=== PATIENT | male | born 1970 | race Caucasian/White ===

== ENCOUNTER → 2023-04-17 11:28 | Outpatient (BNVA) | payer MEDICAID, SELFPAY | PROVIDERS: Visit Provider Nurse Practitioner | DX: Z12.5 Encounter for screening for malignant neoplasm of prostate (principal); I10 Essential (primary) hypertension | CPT/HCPCS: 80053; 80061; 84443; 85025; G0103 ==

== ENCOUNTER 2023-08-18 17:09 | Outpatient (CLI) | payer MEDICAID, SELFPAY ==
--- NOTE | 2023-08-18 17:35 | XRR_ITS ---
PROCEDURE INFORMATION: Exam: XR Lumbosacral Spine Exam date and time: 08/18/2023 5:37 PM Age: 52 years old Clinical indication: Condition or disease; Spondylolisthesis; Lumbar region; Additional info: Spondylolisthesis lumbar region TECHNIQUE: Imaging protocol: Radiologic exam of the lumbosacral spine. Views: 2 or 3 views. Total images: 3 COMPARISON: MR lumbar spine wo con* [id number] 12/18/2016 2:45 PM FINDINGS: Bones/joints: Multilevel degenerative disc disease with disc space narrowing and osteophyte formation. Vertebral body heights are maintained. No evidence of spondylolysis nor spondylolisthesis. No evidence of dynamic instability with flexion and extension maneuvers. Soft tissues: Unremarkable. XR/XR lumbar spine f/e only [id number] IMPRESSION: 1. Degenerative changes as described above but no acute pathology detected. 2. No evidence of dynamic instability with flexion and extension maneuvers.
== END 2023-08-18 17:10 | disposition home or self-care (01) ==
PROVIDERS: PCP Nurse Practitioner; Visit Provider Nurse Practitioner
DX: M43.16 Spondylolisthesis, lumbar region (principal)
CPT/HCPCS: 72120

== ENCOUNTER 2023-11-13 11:11 | Outpatient (CLI) | payer MEDICAID, SELFPAY ==
--- NOTE | 2023-11-13 11:15 | MR_ITS ---
WS: [id number] MRI LUMBAR SPINE NONCONTRAST TECHNIQUE: Sagittal T1, T2 and STIR imaging. Axial T1 and T2 imaging. CLINICAL INFORMATION: VERTEBROGENIC LOW BACK PAIN COMPARISON: MRI 2017 FINDINGS: Mild lumbar curve. No acute compression. No high-grade central canal stenosis. L1-L2: Mild annular bulging with slight effacement of the ventral thecal sac. Mild narrowing of the s ubarticular recess bilaterally. Mild facet arthropathy. Foramen are patent. L2-L3: Mild annular bulging with slight narrowing of the RIGHT greater than LEFT subarticular recess. Mild facet arthropathy. Spinal canal and foramen are patent. L3-L4: Mild annular bulging with a tiny LEFT proximal foraminal protrusion. Slight contact of the pro ximal exiting LEFT L3 nerve root. RIGHT foramen and spinal canal are patent. Mild facet arthropathy. L4-L5: Mild annular bulging. Slight effacement of the ventral thecal sac. Mild facet arthropathy. Mil d LEFT and no significant RIGHT foraminal narrowing. L5-S1: Mild annular bulging with a shallow LEFT paracentral protrusion. This impinges the traversing LEFT S1 nerve root in the subarticular recess. This is similar to previous. Recommend correlation LEF T S1 nerve root symptoms. Mild LEFT greater than RIGHT foraminal narrowing. Mild facet arthropathy. Visualized pelvic bony structures: Normal. Paravertebral soft tissues: Normal. IMPRESSION: 1. Tiny LEFT proximal foraminal disc osteophyte protrusion L3-4 slightly contacts the exiting LEFT L 3 nerve root. This is progressed compared to previous. 2. Mild LEFT L4-5 foraminal narrowing. 3. Shallow LEFT paracentral protrusion L5-S1 slightly impinges the traversing LEFT S1 nerve root in the subarticular recess similar to previous. 4. Mild facet arthropathy L3-L5.
== END 2023-11-13 11:12 | disposition home or self-care (01) ==
LOC: RAD 11:11
PROVIDERS: PCP Nurse Practitioner; Visit Provider Anesthesiology Pain Medicine
DX: M51.27 Other intervertebral disc displacement, lumbosacral region (principal); M48.061 Spinal stenosis, lumbar region without neurogenic claudication; M25.78 Osteophyte, vertebrae; M47.816 Spondylosis without myelopathy or radiculopathy, lumbar region
CPT/HCPCS: 72148

== ENCOUNTER 2024-03-09 20:00 | Outpatient (CLI) | payer MEDICAID, SELFPAY | END 2024-03-09 20:01 | disposition home or self-care (01) | LOC: SLEEP 03-10 06:28 | PROVIDERS: PCP Nurse Practitioner Family; Visit Provider Specialist | DX: G47.10 Hypersomnia, unspecified (principal); G31.84 Mild cognitive impairment of uncertain or unknown etiology; G47.33 Obstructive sleep apnea (adult) (pediatric) | CPT/HCPCS: 95810 ==

== ENCOUNTER → 2024-06-01 11:57 | Outpatient (BNVA) | payer MEDICAID, SELFPAY | PROVIDERS: PCP Nurse Practitioner Family; Visit Provider Nurse Practitioner Family | DX: I10 Essential (primary) hypertension (principal) | CPT/HCPCS: 80053; 85025 ==

== ENCOUNTER → 2025-01-11 12:53 | Outpatient (BNVA) | payer MEDICAID, SELFPAY | PROVIDERS: PCP Nurse Practitioner Family; Visit Provider Specialist | DX: R41.3 Other amnesia (principal); G47.10 Hypersomnia, unspecified; M54.9 Dorsalgia, unspecified; G89.29 Other chronic pain; M51.16 Intervertebral disc disorders with radiculopathy, lumbar region; F90.2 Attention-deficit hyperactivity disorder, combined type; F41.1 Generalized anxiety disorder | CPT/HCPCS: 36415; 82542; 82607; 83520; 99213 ==

== ENCOUNTER → 2025-02-24 11:38 | Outpatient (BNVA) | payer MEDICAID, SELFPAY | PROVIDERS: PCP Nurse Practitioner Family; Visit Provider Student in an Organized Health Care Education/Training Program | DX: Z12.11 Encounter for screening for malignant neoplasm of colon (principal) | CPT/HCPCS: 99024; 99204 ==

== ENCOUNTER 2025-03-29 08:29 | Day surgery (SDC) | payer MEDICAID, SELFPAY ==
[2025-03-29 08:50] VITALS: BP 152/96; PULSE 84; RESP 18; TEMP 36.9; O2SAT 97; BMI 25.0
[2025-03-29] MEDS: sodium chloride 0.9% 1,000 ML 15 ML IV (08:58)
--- NOTE | 2025-03-29 09:13 | P.ANESASSM_ITS ---
Pre-Anesthetic Assessment Height/Weight: Height 1.73 m Weight 74.843 kg Temp Pulse Resp BP Pulse Ox O2 Del Method 98.5 F 84 18 152/96 97 Room Air 03/29/25 08:50 03/29/25 08:50 03/29/25 08:50 03/29/25 08:50 03/29/25 08:50 03/29/25 08:50 Preop Diagnosis: screening Operation Date: 03/29/25 10:30 Proposed Procedures p [id number], [id number], Z12.11(Not Applicable) - Jack Mendoza MD Familial anesthetic complications: none Was Beta Berry taken within 24 hours: N/A Was Clonidine taken within 24 hours: N/A Last intake: Intake Last Liquid Date 03/28/25 Last Liquid Time 23:00 Last Solid Date 03/27/25 Last Solid Time 19:00 Social No alcohol and No tobacco Exam alert and oriented x 3 Airway Submandibular: within normal limits Cervical ROM: within normal limits Mallampati: Class II Dentition: full Pulmonary Asthma CV/HEM Hypertension kidney stones Hepatic None reported GI Gastroesophageal Reflux Disease (occasional) Metabolic None reported Musc/skel Lower Back Pain Neuropsych Anxiety and Depression ADHD Anesthetic Plan ASA status: 3 Anesthesia: Anesthesia Evaluation and MAC Risk of > 500 ml blood loss (7ml/kg in children): No Medications/Allergies Home Medications ?Medication ?Instructions ?Recorded ?Confirmed ?Last Taken ?Type tramadol 50 mg tablet 50 mg PO Q6H PRN pain #20 ta bs 07/08/23 03/29/25 03/27/25 Rx albuterol sulfate 90 mcg/actuation 2 puff inhalation Q 6H PRN 06/01/24 03/29/25 Unknown Rx aerosol inhaler shortness of breath or wheez ing #8.5 grams cetirizine 10 mg tablet (All Day 10 mg PO DAILY #90 ta bs 06/01/24 03/29/25 03/28/25 Rx Allergy (cetirizine)) methylphenidate HCl 20 mg tablet 20 mg PO BID 1 month #60 tabs 01/11/25 03/29/25 03/23/25 Rx cyanocobalamin (vitamin B-12) 1,000 mcg IM Q30D 12 mon ths #12 mL 01/19/25 03/29/25 03/03/25 Rx 1,000 mcg/mL injection solution lisinopril 20 mg tablet 20 mg PO DAILY #90 tabs 01/0803/29/25 03/23/25 Rx fluticasone 250 mcg-salmeterol 50 1 inh inhalation BID 03/24/25 03/29/25 03/28/25 History mcg/dose blistr powdr for inhalation (Advair Diskus) Allergies Allergy/AdvReac Type Severity Reaction Status Date / Time soy Allergy ADR-Heartbu Verified 03/29/25 08:46 rn Current Medications Generic Name Dose Route Start Last Admin Trade Name Freq PRN Reason Stop Dose Admin Sodium Chloride 1,000 mls @ 15 mls/hr 03/29/25 08:44 03/29/25 08:58 Sodium Chloride 0.9% IV 03/30/25 08:43 15 mls/hr .Q24H PRN Administration COLONOSCOPY FLUIDS PFSH Anesthesia Medical History Psychiatric care Pain Social History Smoking and tobacco/nicotine status: never used tobacco/nicotine
--- NOTE | 2025-03-29 11:09 | W.PM.OPSFHP ---
Same Day Surgery H&P Indication for Procedure/HPI DATE OF PROCEDURE: March 29, 2025 CHIEF COMPLAINT/INDICATIONFOR SURGICAL PROCEDURE: screening colonoscopy PREOP DIAGNOSIS: screening PLANNED PROCEDURE: Operation Date: 03/29/25 10:30 Proposed Procedures p [id number], G0121, Z12.11(Not Applicable) - Jack Mendoza MD Medications/Allergies* Home Medications ?Medication ?Instructions ?Recorded ?Confirmed ?Type fluticasone 250 mcg-salmeterol 50 1 inh inhalation BID 03/24/25 03/29/25 History mcg/dose blistr powdr for inhalation (Advair Diskus) Allergies/Adverse Reactions Allergy/AdvReac Type Severity Reaction Status Date / Time soy Allergy ADR-Heartbu Verified 03/29/25 08:46 rn Current Medications: Generic Name Dose Route Start Last Admin Trade Name Freq PRN Reason Stop Dose Admin Sodium Chloride 1,000 mls @ 15 mls/hr 03/29/25 08:44 03/29/25 08:58 Sodium Chloride 0.9% IV 03/30/25 08:43 15 mls/hr .Q24H PRN Administration COLONOSCOPY FLUIDS Pertinent History/Comorbid Conditions* Medical History (Updated 01/25/25 @ 14:40 by MARCY Webster) Psychiatric care Pain Social History Smoking and tobacco/nicotine status: never used tobacco/nicotine Pertinent Exam Findings alert, oriented x 3, clear to auscultation bilaterally, regular rate & rhythm and procedure specific exam findings abdomen soft, nt, nd Recommendations Risks and benefits of procedure reviewed Surgery/Procedure today Coding Level of Care Code Acute Code for Chg Fwd
[2025-03-29 11:31] VITALS: BP 133/91; PULSE 82; RESP 18; TEMP 36.3; O2SAT 93
[2025-03-29 11:45] VITALS: BP 143/97; PULSE 67; RESP 18; TEMP 36.2; O2SAT 97
--- NOTE | 2025-03-29 12:09 | ANE.PACU2 ---
Inpatient post-anesthesia follow up: Airway intact: Yes Vital signs: Temperature 97.2 F Pulse Rate 67 Respiratory Rate 18 Blood Pressure 143/97 Pulse Oximetry 97 Oxygen Delivery Me thod Room Air Oxygen Flow Rate Fraction of Inspir ed Oxygen Hydration adequate: Yes Nausea and vomiting: No Pain level: 1 Mental status: Baseline
== END 2025-03-29 12:10 | disposition home or self-care (01) ==
PROVIDERS: PCP Nurse Practitioner Family; Visit Provider Student in an Organized Health Care Education/Training Program
PROC: 0DJD8ZZ Inspection of Lower Intestinal Tract, Via Natural or Artificial Opening Endoscopic (ICD-10-PCS; CPT 45378; principal; 2025-03-29 10:30)
DX: Z12.11 Encounter for screening for malignant neoplasm of colon (principal); K21.9 Gastro-esophageal reflux disease without esophagitis; I10 Essential (primary) hypertension; Z79.899 Other long term (current) drug therapy
CPT/HCPCS: 45378; J2704; J7030

== ENCOUNTER → 2025-04-07 13:12 | Outpatient (BNVA) | payer MEDICAID, SELFPAY | PROVIDERS: PCP Nurse Practitioner Family; Visit Provider Specialist | DX: G31.84 Mild cognitive impairment of uncertain or unknown etiology (principal); G47.10 Hypersomnia, unspecified; M54.9 Dorsalgia, unspecified; G89.29 Other chronic pain; M51.16 Intervertebral disc disorders with radiculopathy, lumbar region; F90.2 Attention-deficit hyperactivity disorder, combined type; F41.1 Generalized anxiety disorder; F81.9 Developmental disorder of scholastic skills, unspecified | CPT/HCPCS: 99213 ==

== ENCOUNTER → 2025-07-05 13:18 | Outpatient (BNVA) | payer MEDICAID, SELFPAY | PROVIDERS: PCP Nurse Practitioner Family; Visit Provider Specialist | DX: G31.84 Mild cognitive impairment of uncertain or unknown etiology (principal); G47.10 Hypersomnia, unspecified; M51.16 Intervertebral disc disorders with radiculopathy, lumbar region; F90.2 Attention-deficit hyperactivity disorder, combined type; F81.9 Developmental disorder of scholastic skills, unspecified | CPT/HCPCS: 99213 ==

== ENCOUNTER → 2025-09-27 12:37 | Outpatient (BNVA) | payer MEDICAID, SELFPAY | PROVIDERS: PCP Nurse Practitioner Family; Visit Provider Specialist | DX: F90.2 Attention-deficit hyperactivity disorder, combined type (principal); M51.16 Intervertebral disc disorders with radiculopathy, lumbar region; F81.9 Developmental disorder of scholastic skills, unspecified; E53.8 Deficiency of other specified B group vitamins | CPT/HCPCS: 99214 ==